=== PATIENT | female | born 1995 | race American Indian/Alaskan Native ===

== ENCOUNTER 2019-07-31 20:20 | Observation (INO) | payer OTHER ==
--- NOTE | 2019-07-31 20:30 | Event Note ---
ED Screening Note Date of service: 07/31/19 Time: 20:29 ED Screening Note: 24y o f presents with upper abd pain This initial assessment/diagnostic orders/clinical plan/treatment(s) is/are subject to change based on patients health status, clinical progression and re- assessment by fellow clinical providers in the ED. Further treatment and workup at subsequent clinical providers discretion. Patient/guardian urged not to elope from the ED as their condition may be serious if not clinically assessed and managed. Initial orders include: labs,ua, upt
[2019-07-31 21:18] LABS: Basophils % (Auto) 0.7 % (0.0-1.8); Eosinophils % (Auto) 0.4 % (0.0-4.3); Hematocrit 39.1 % (30.3-42.9); Hemoglobin 12.6 gm/dl (10.1-14.3); Lymphocytes # (Auto) 1.2 K/mm3 (1.2-5.4); Lymphocytes % (Auto) 27.7 % (13.4-35.0); Mean Corpuscular HGB Conc 32 % (30-34); Mean Corpuscular Volume 88 fl (79-97); Monocytes # (Auto) 0.3 K/mm3 (0.0-0.8); Monocytes % (Auto) 6.9 % (0.0-7.3); Platelet Count 274 K/mm3 (140-440); Red Blood Count 4.46 M/mm3 (3.65-5.03); Red Cell Distribution Width 14.3 % (13.2-15.2)
[2019-07-31 21:38] LABS: BUN/Creatinine Ratio 13; Blood Urea Nitrogen 9 mg/dL (7-17); Calcium 9.2 mg/dL (8.4-10.2); Hemolysis Index 5
--- NOTE | 2019-07-31 21:51 | Emergency Department Report ---
ED Abdominal Pain HPI - General Chief Complaint: Abdominal Pain Stated Complaint: ABD PAIN/NAUSEA/EMESIS/DIZZY Time Seen by Provider: 07/31/19 20:29 Source: patient Mode of arrival: Ambulatory Limitations: No Limitations - History of Present Illness Initial Comments: 24-year-old -[place]ron[place] female presents to the emergency room for upper abdominal pain that radiates to her back. Patient was seen 2 days ago and was diagnosed with abdominal pain CT showed that she had gallbladder thickening with no gallbladder stones or obstruction. Patient was referred to GI and primary care but has not followed up. Patient states that her pain is worse and is not able to wait that long to be seen. Patient reports she has an appointment with the GI specialist tomorrow. MD Complaint: abdominal pain Onset/Timin -: week(s) Location: RUQ Radiation: none Severity: severe Severity scale (0 -10): 8 Quality: sharp Consistency: constant, colicky Improves With: nothing Worsens With: eating, vomiting, movement Associated Symptoms: nausea, vomiting - Related Data LMP Date: 07/27/19 Previous Rx's Medication Instructions Recorded Last Taken Type Acetaminophen/Codeine [Tylenol 1 tab PO Q6H PRN #12 tab 07/29/19 Unknown Rx /Codeine # 3 tab] Ondansetron [Zofran Odt] 4 mg PO Q8HR PRN #20 tab.rapdis 07/29/19 Unknown Rx Allergies Allergy/AdvReac Type Severity Reaction Status Date / Time No Known Allergies Allergy Verified 07/31/19 20:25 ED Review of Systems ROS: Stated complaint: ABD PAIN/NAUSEA/EMESIS/DIZZY Other details as noted in HPI Comment: All other systems reviewed and negative Constitutional: denies: chills, fever Eyes: denies: eye pain, eye discharge, vision change ENT: denies: ear pain, throat pain Respiratory: denies: cough, shortness of breath, wheezing Cardiovascular: denies: chest pain, palpitations Endocrine: no symptoms reported Gastrointestinal: abdominal pain, nausea, vomiting Genitourinary: denies: urgency, dysuria, hematuria, discharge Musculoskeletal: denies: back pain, joint swelling, arthralgia Skin: denies: rash, lesions Neurological: denies: headache, weakness, paresthesias Psychiatric: denies: anxiety, depression Hematological/Lymphatic: denies: easy bleeding, easy bruising ED Past Medical Hx - Past Medical History Previous Medical History?: No - Surgical History Additional Surgical History: C section - Social History Smoking Status: Never Smoker - Medications Home Medications: Home Medications Medication Instructions Recorded Confirmed Last Taken Type Acetaminophen/Codeine [Tylenol 1 tab PO Q6H PRN #12 tab 07/29/19 Unknown Rx /Codeine # 3 tab] Ondansetron [Zofran Odt] 4 mg PO Q8HR PRN #20 tab.rapdis 07/29/19 Unknown Rx ED Physical Exam - General Limitations: No Limitations General appearance: alert, in no apparent distress - Head Head exam: Present: atraumatic, normocephalic - Eye Eye exam: Present: normal appearance - ENT ENT exam: Present: mucous membranes moist - Neck Neck exam: Present: normal inspection, full ROM - Respiratory Respiratory exam: Present: normal lung sounds bilaterally. Absent: respiratory distress - Cardiovascular Cardiovascular Exam: Present: tachycardia - GI/Abdominal GI/Abdominal exam: Present: soft, tenderness, guarding, normal bowel sounds. Absent: distended - Extremities Exam Extremities exam: Present: normal inspection, full ROM - Back Exam Back exam: Present: normal inspection - Neurological Exam Neurological exam: Present: alert, oriented X3 - Psychiatric Psychiatric exam: Present: normal affect, normal mood - Skin Skin exam: Present: warm, dry, intact, normal color. Absent: rash ED Course Vital Signs 07/31/19 07/31/19 07/31/19 20:30 23:10 23:40 Temperature 97.6 F Pulse Rate 97 H Respiratory 24 18 18 Rate Blood Pressure 112/90 O2 Sat by Pulse 97 Oximetry ED Medical Decision Making - Lab Data Result diagrams: 07/31/19 20:42 07/31/19 20:42 - Radiology Data Radiology results: report reviewed Patient: VINCENT MCCARTHY MR#: [id number] : 1995 Acct:[id number] Age/Sex: 24 / F ADM Date: 07/31/19 Loc: ED Attending Dr: Ordering Physician: DENISE CASTILLO Date of Service: 07/31/19 Procedure(s): US abdomen limited Accession Number(s): [id number] cc: DENISE CASTILLO ULTRASOUND ABDOMEN, LIMITED (RIGHT UPPER QUADRANT) INDICATION / CLINICAL INFORMATION: right upper quadrant pain that radiates to the back. COMPARISON: 07/29/2019 CT scan FINDINGS: Patient body habitus limits visualization of the abdominal viscera. PANCREAS: Poorly visualized due to inadequate acoustic windows. LIVER: Limited visualization of the liver parenchyma due to shadowing from o verlying ribs and bowel gas. GALLBLADDER: Gallbladder wall thickness is at the upper limit of normal range, 3 mm. The gallbladder is distended with length approximately 10 cm. Sonographic Calvin sign is reportedly positive. Small echogenic foci in the gallbladder fundus may represent stones or echogenic sludge. BILE DUCTS: No significant abnormality. Common bile duct measures 4 mm. FREE FLUID: None. ADDITIONAL FINDINGS: None. IMPRESSION: 1. Possible small gallstones or echogenic biliary sludge are seen in the gallbladder fundus. There are equivocal signs of acute cholecystitis sonographically. If the diagnosis is in doubt, a confirmatory HIDA scan may be obtained. Signer Name: Altaf Arteaga MD Signed: 07/31/2019 11:14 PM Workstation Name: [id number] Transcribed By: CALE Dictated By: Altaf Arteaga MD Electronically Authenticated By: Altaf Arteaga MD Signed Date/Time: 07/31/192313 DD/ 08 TD/TT: - Medical Decision Making 24-year-old -Micronesian female presents to the emergency room for upper abdominal pain that radiates to her back. Patient was seen 2 days ago and was diagnosed with abdominal pain CT showed that she had gallbladder thickening with no gallbladder stones or obstruction. Patient was referred to GI and primary care but has not followed up. Patient states that her pain is worse and is not able to wait that long to be seen. Patient reports she has an appointment with the GI specialist tomorrow. Ultrasound shows patient has cholecystitis with biliary sludge. Spoke to Dr. Stone. Order LFTs and lipase Labs are stable. Spoke to Dr. Edouard on surgery she requests patient to be admitted to obs ervation unit is started Zosyn 4.5 mg I will also place patient back on normal saline as well as nothing by mouth. Spoke to the patient regarding her admission. Critical care attestation.: If time is entered above; I have spent that time in minutes in the direct care of this critically ill patient, excluding procedure time. ED Disposition Clinical Impression: Cholecystitis, acute Disposition: DC-09 OP ADMIT IP TO THIS HOSP Is pt being admited?: Yes Does the pt Need Aspirin: No Condition: Stable Instructions: Abdominal Pain (ED) Referrals: PRIMARY CARE, [Primary Care Provider] - 3-5 Days
[2019-07-31 22:20] LABS: HCG Qualitative,Urine Negative (Negative)
[2019-07-31 22:23] LABS: Bilirubin,Urine NEG (Negative); Blood,Urine LG (Negative); Color,Urine Yellow (Yellow); Mucus,Urine FEW /HPF; Protein,Urine <15 mg/dL mg/dL (Negative); Urobilinogen,Urine < 2.0 mg/dL (<2.0)
[2019-07-31] MEDS ORDERED: SODIUM CHLORIDE 0.9% 1000 ML 1,000 ML IV ONE (23:01)
[2019-07-31] MEDS ORDERED: MORPHINE 4 MG/1 ML INJ IM ONE (23:01)
[2019-07-31] MEDS ORDERED: METOCLOPRAMIDE 10 MG/2 ML INJ IV ONE (23:01)
[2019-07-31] MEDS ORDERED: MORPHINE 4 MG/1 ML INJ IV ONE (23:05)
--- NOTE | 2019-07-31 23:19 | Ultrasound Report ---
ULTRASOUND ABDOMEN, LIMITED (RIGHT UPPER QUADRANT) INDICATION / CLINICAL INFORMATION: right upper quadrant pain that radiates to the back. COMPARISON: 07/29/2019 CT scan FINDINGS: Patient body habitus limits visualization of the abdominal viscera. PANCREAS: Poorly visualized due to inadequate acoustic windows. LIVER: Limited visualization of the liver parenchyma due to shadowing from overlying ribs and bowel g as. GALLBLADDER: Gallbladder wall thickness is at the upper limit of normal range, 3 mm. The gallbladder is distended with length approximately 10 cm. Sonographic Calvin sign is reportedly positive. Small e chogenic foci in the gallbladder fundus may represent stones or echogenic sludge. BILE DUCTS: No significant abnormality. Common bile duct measures 4 mm. FREE FLUID: None. ADDITIONAL FINDINGS: None. IMPRESSION: 1. Possible small gallstones or echogenic biliary sludge are seen in the gallbladder fundus. There ar e equivocal signs of acute cholecystitis sonographically. If the diagnosis is in doubt, a confirmator y HIDA scan may be obtained. Signer Name: Altaf Arteaga MD Signed: 07/31/2019 11:14 PM Workstation Name: [id number]
[2019-08-01 01:28] LABS: Alanine Aminotransferase 62 units/L (7-56); Albumin 4.4 g/dL (3.9-5)
[2019-08-01 01:39] LABS: Bilirubin,Direct < 0.2 mg/dL (0-0.2)
[2019-08-01] MEDS ORDERED: PIPERACIL/TAZOBACTA 4.5/NS 100 4.5 GM/100 ML VIAL IV ONE (01:59)
[2019-08-01] MEDS ORDERED: SODIUM CHLORIDE 0.9% 1000 ML 1,000 ML IV ONE (02:00)
[2019-08-01] MEDS ORDERED: MORPHINE 4 MG/1 ML INJ IV PRN (02:30)
[2019-08-01] MEDS ORDERED: ACETAMINOPHEN 325 MG TAB PO PRN (02:30)
--- NOTE | 2019-08-01 02:39 | History and Physical Report ---
History of Present Illness Chief complaint: Right upper quadrant pain History of present illness: 24-year-old woman who presents to the hospital right upper quadrant pain x3 days. He has been associated with nausea. Pain was as bad as 9 out of 10, currently 3 out of 10 as she has received pain meds. It is worse after eating. She states that gallstones run in her family. She has had similar episodes in the past but they resolved, but she seems to be getting them more frequently. She states that the first episode occurred after she had a baby by Past medical history; gallstones Surgical history; Social history denies tobacco alcohol or illicit drug abuse Family history; gallstones Medications and Allergies Allergies Allergy/AdvReac Type Severity Reaction Status Date / Time No Known Allergies Allergy Verified 07/31/19 20:25 Home Medications Medication Instructions Recorded Confirmed Last Taken Type oxyCODONE /ACETAMINOPHEN [Percocet 1 tab PO Q4H PRN #20 tablet 08/02/19 Unknown Rx 5/325 mg] Active Meds: Active Medications Acetaminophen (Tylenol) 650 mg PO Q4H PRN PRN Reason: Pain MILD(1-3)/Fever >100.5/CAMACHO Hydromorphone HCl (Dilaudid) 0.5 mg IV Q3H PRN PRN Reason: Pain , Severe (7-10) Sodium Chloride (Nacl 0.9% 1000 Ml) 1,000 mls @ 999 mls/hr IV BOLUS ONE Stop: 08/01/19 03:00 Last Admin: 08/01/19 02:10 Dose: 999 mls/hr Documented by: Sodium Chloride (Nacl 0.9% 1000 Ml) 1,000 mls @ 125 mls/hr IV DIRECT ERIC Morphine Sulfate (Morphine) 4 mg IV Q4H PRN PRN Reason: Pain , Severe (7-10) Ondansetron HCl (Zofran) 4 mg IV Q4H PRN PRN Reason: Nausea And Vomiting Sodium Chloride (Sodium Chloride Flush Syringe 10 Ml) 10 ml IV BID ERIC Sodium Chloride (Sodium Chloride Flush Syringe 10 Ml) 10 ml IV PRN PRN PRN Reason: LINE FLUSH Review of Systems All systems: negative Constitutional: anorexia, no weight loss Ears, nose, mouth and throat: no ear pain Breasts: no mass Cardiovascular: no chest pain Respiratory: no cough Gastrointestinal: abdominal pain, nausea Genitourinary Female: no dyspareunia Menstruation: no currently menstrual Rectal: no pain Musculoskeletal: no neck stiffness Integumentary: no rash Neurological: no head injury Psychiatric: no anxiety Endocrine: no cold intolerance Hematologic/Lymphatic: no easy bruising Allergic/Immunologic: no urticaria Exam - Constitutional Vitals: Temp Pulse Resp BP Pulse Ox 98.4 F 88 18 107/70 98 08/01/19 02:12 08/01/19 02:12 08/01/19 02:12 08/01/19 02:12 08/01/19 02:12 General appearance: Present: no acute distress, well-nourished - EENT Eyes: Present: PERRL ENT: hearing intact, clear oral mucosa - Neck Neck: Present: supple, normal ROM - Respiratory Respiratory effort: normal Respiratory: bilateral: CTA - Cardiovascular Heart Sounds: Present: S1 & S2. Absent: rub, click - Extremities Extremities: pulses symmetrical, No edema Peripheral Pulses: within normal limits - Abdominal General gastrointestinal: Present: soft, tender (right upper quadrant), non- distended, normal bowel sounds Female genitourinary: Present: normal - Integumentary Integumentary: Present: clear, warm, dry - Musculoskeletal Musculoskeletal: gait normal, strength equal bilaterally - Psychiatric Psychiatric: appropriate mood/affect, intact judgment & insight - Neurologic Neurologic: CNII-XII intact, moves all extremities Results - Labs CBC & Chem 7: 08/02/19 05:25 08/02/19 05:25 Labs: Laboratory Last Values WBC 4.2 K/mm3 (4.5-11.0) L 07/31/19 20:42 RBC 4.46 M/mm3 (3.65-5.03) 07/31/19 20:42 Hgb 12.6 gm/dl (10.1-14.3) 07/31/19 20:42 Hct 39.1 % (30.3-42.9) 07/31/19 20:42 MCV 88 fl (79-97) 07/31/19 20:42 MCH 28 pg (28-32) 07/31/19 20:42 MCHC 32 % (30-34) 07/31/19 20:42 RDW 14.3 % (13.2-15.2) 07/31/19 20:42 Plt Count 274 K/mm3 (140-440) 07/31/19 20:42 Lymph % (Auto) 27.7 % (13.4-35.0) 07/31/19 20:42 [place] % (Auto) 6.9 % (0.0-7.3) 07/31/19 20:42 Eos % (Auto) 0.4 % (0.0-4.3) 07/31/19 20:42 Baso % (Auto) 0.7 % (0.0-1.8) 07/31/19 20:42 Lymph # 1.2 K/mm3 (1.2-5.4) 07/31/19 20:42 [place] # 0.3 K/mm3 (0.0-0.8) 07/31/19 20:42 Eos # 0.0 K/mm3 (0.0-0.4) 07/31/19 20:42 Baso # 0.0 K/mm3 (0.0-0.1) 07/31/19 20:42 Seg Neutrophils % 64.3 % (40.0-70.0) 07/31/19 20:42 Seg Neutrophils # 2.7 K/mm3 (1.8-7.7) 07/31/19 20:42 Sodium 142 mmol/L (137-145) 07/31/19 20:42 Potassium 3.7 mmol/L (3.6-5.0) 07/31/19 20:42 Chloride 105.5 mmol/L (98-107) 07/31/19 20:42 Carbon Dioxide 23 mmol/L (22-30) 07/31/19 20:42 17 mmol/L 07/31/19 20:42 BUN 9 mg/dL (7-17) 07/31/19 20:42 0.7 mg/dL (0.7-1.2) 07/31/19 20:42 Estimated GFR > 60 ml/min 07/31/19 20:42 13 % 07/31/19 20:42 Glucose 96 mg/dL (65-100) 07/31/19 20:42 Calcium 9.2 mg/dL (8.4-10.2) 07/31/19 20:42 0.70 mg/dL (0.1-1.2) 08/01/19 00:34 < 0.2 mg/dL (0-0.2) 08/01/19 00:34 0.5 mg/dL 08/01/19 00:34 AST 30 units/L (5-40) 08/01/19 00:34 ALT 62 units/L (7-56) H 08/01/19 00:34 67 units/L (35-129) 08/01/19 00:34 8.0 g/dL (6.3-8.2) 08/01/19 00:34 4.4 g/dL (3.9-5) 08/01/19 00:34 1.2 % 08/01/19 00:34 23 units/L (13-60) 08/01/19 00:34 Yellow (Yellow) 07/31/19 21:46 Slightly-cloudy (Clear) 07/31/19 21:46 5.0 (5.0-7.0) 07/31/19 21:46 Ur Specific [place] 1.020 (1.003-1.030) 07/31/19 21:46 <15 mg/dl mg/dL (Negative) 07/31/19 21:46 Neg mg/dL (Negative) 07/31/19 21:46 Neg mg/dL (Negative) 07/31/19 21:46 Lg (Negative) 07/31/19 21:46 Neg (Negative) 07/31/19 21:46 Ur Reducing Substances Not Reportable 07/31/19 21:46 Neg (Negative) 07/31/19 21:46 Not Reportable 07/31/19 21:46 < 2.0 mg/dL (<2.0) 07/31/19 21:46 Ur Leukocyte Esterase Neg (Negative) 07/31/19 21:46 4.0 /HPF (0.0-6.0) 07/31/19 21:46 3.0 /HPF (0.0-6.0) 07/31/19 21:46 U Epithel Cells (Auto) 5.0 /HPF (0-13.0) 07/31/19 21:46 Few /HPF 07/31/19 21:46 Urine HCG, Qual Negative (Negative) 07/31/19 21:46 Assessment and Plan Assessment and plan: 24-year-old woman who presents to the hospital with right upper quadrant pain consistent with acute cholecystitis Labs reviewed show white count of 4.2, ALT of 62, UA negative abdominal ultrasound; possible small gallstones or echogenic biliary sludge is seen in the gallbladder fundus. There are equivocal signs of acute cholecys titis sonographically. Acute cholecystitis Surgery was consulted by the ER, plan for possible lap joleen. Keep n.p.o., IV fluids pain meds, IV antibiotics, antiemetics as needed. DVT prophylaxis Early ambulation
[2019-08-01] MEDS ORDERED: HYDROmorphone 1 MG/1 ML INJ ONE (04:05)
[2019-08-01] MEDS: HYDROmorphone 1 MG/1 ML INJ IV PRN ×5 (04:05→19:54)
[2019-08-01] MEDS: SODIUM CHLORIDE 0.9% 1000 ML 1,000 ML IV SCH ×3 (05:11→19:55)
[2019-08-01] MEDS: PIPERACIL/TAZOBACTA 4.5/NS 100 4.5 GM/100 ML VIAL IV SCH ×3 (07:01→21:00)
[2019-08-01] MEDS: ONDANSETRON 4 MG/2 ML INJ IV PRN ×3 (09:10→19:53)
--- NOTE | 2019-08-01 14:23 | Consultation ---
History of Present Illness Consult date: 08/01/19 Reason for consult: abdominal pain Chief complaint: Abdominal pain - History of present illness History of present illness: 24-year-old female with no past medical history presents to the emergency room w ith 3 days of abdominal pain, nausea, vomiting. She states abdominal pain as sharp and localized to the right upper quadrant and often radiates to her back and across to the other side of her abdomen. She states that she had similar but less severe episodes during her last and since she is given to her son. However, this episode has been the most severe. The pain is exacerbated by fatty foods. There are no alleviating factors except for IV pain medication. She has had several episodes of nausea and emesis. Per nursing the patient was eating noodles this morning at 3 AM however vomited shortly thereafter. No fevers, chills, chest pain, shortness of breath. The patient had presented to the emergency room on 07/29 with similar symptoms and was discharged home after symptom relief. Past History Past Medical History: No medical history Past Surgical History: Social history: no significant social history Family history: other (gallbladder - aunt, grandfather) Medications and Allergies Allergies Allergy/AdvReac Type Severity Reaction Status Date / Time No Known Allergies Allergy Verified 07/31/19 20:25 Active Meds: Active Medications Acetaminophen (Tylenol) 650 mg PO Q4H PRN PRN Reason: Pain MILD(1-3)/Fever >100.5/CAMACHO Hydromorphone HCl (Dilaudid) 0.5 mg IV Q3H PRN PRN Reason: Pain , Severe (7-10) Last Admin: 08/01/19 12:41 Dose: 0.5 mg Documented by: Sodium Chloride (Nacl 0.9% 1000 Ml) 1,000 mls @ 125 mls/hr IV DIRECT ERIC Last Admin: 08/01/19 12:41 Dose: 125 mls/hr Documented by: Piperacillin Sod/Tazobactam Sod (Zosyn/Ns 4.5gm/100ml) 4.5 gm in 100 mls @ 200 mls/hr IV Q8HR ERIC; Protocol Last Admin: 08/01/19 13:19 Dose: 200 mls/hr Documented by: Morphine Sulfate (Morphine) 4 mg IV Q4H PRN PRN Reason: Pain , Severe (7-10) Ondansetron HCl (Zofran) 4 mg IV Q4H PRN PRN Reason: Nausea And Vomiting Last Admin: 08/01/19 09:10 Dose: 4 mg Documented by: Sodium Chloride (Sodium Chloride Flush Syringe 10 Ml) 10 ml IV BID ERIC Last Admin: 08/01/19 12:49 Dose: Not Given Documented by: Sodium Chloride (Sodium Chloride Flush Syringe 10 Ml) 10 ml IV PRN PRN PRN Reason: LINE FLUSH Review of Systems All systems: negative (10 point review systems was performed and negative except for that listed in HPI) Exam Vital Signs Temp Pulse Resp BP Pulse Ox 97.6 F 97 H 24 112/90 97 07/31/19 20:30 07/31/19 20:30 07/31/19 20:30 07/31/19 20:30 07/31/19 20:30 Narrative exam: Gen.: Awake, alert, oriented 3. No apparent distress ENT: No scleral icterus or conjunctival pallor CV: S1, S2 present Respiratory: No audible wheezes Abdomen: Soft, nondistended, positive tenderness to palpation in the epigastrium and right upper quadrant. No rebound, rigidity, guarding Extremities: No clubbing, cyanosis, edema Results - Labs 07/31/19 20:42 07/31/19 20:42 Abnormal lab results 07/31/19 08/01/19 Range/Units 20:42 00:34 WBC 4.2 L (4.5-11.0) K/mm3 ALT 62 H (7-56) units/L Diabetes panel 07/31/19 08/01/19 Range/Units 20:42 00:34 Sodium 142 (137-145) mmol/L Potassium 3.7 (3.6-5.0) mmol/L Chloride 105.5 (98-107) mmol/L Carbon Dioxide 23 (22-30) mmol/L BUN 9 (7-17) mg/dL Creatinine 0.7 (0.7-1.2) mg/dL Glucose 96 (65-100) mg/dL Calcium 9.2 (8.4-10.2) mg/dL AST 30 (5-40) units/L ALT 62 H (7-56) units/L Alkaline Phosphatase 67 (35-129) units/L Total Protein 8.0 (6.3-8.2) g/dL Albumin 4.4 (3.9-5) g/dL Calcium panel 07/31/19 08/01/19 Range/Units 20:42 00:34 Calcium 9.2 (8.4-10.2) mg/dL Albumin 4.4 (3.9-5) g/dL Pituitary panel 07/31/19 Range/Units 20:42 Sodium 142 (137-145) mmol/L Potassium 3.7 (3.6-5.0) mmol/L Chloride 105.5 (98-107) mmol/L Carbon Dioxide 23 (22-30) mmol/L BUN 9 (7-17) mg/dL Creatinine 0.7 (0.7-1.2) mg/dL Glucose 96 (65-100) mg/dL Calcium 9.2 (8.4-10.2) mg/dL Adrenal panel 07/31/19 08/01/19 Range/Units 20:42 00:34 Sodium 142 (137-145) mmol/L Potassium 3.7 (3.6-5.0) mmol/L Chloride 105.5 (98-107) mmol/L Carbon Dioxide 23 (22-30) mmol/L BUN 9 (7-17) mg/dL Creatinine 0.7 (0.7-1.2) mg/dL Glucose 96 (65-100) mg/dL Calcium 9.2 (8.4-10.2) mg/dL Total Bilirubin 0.70 (0.1-1.2) mg/dL AST 30 (5-40) units/L ALT 62 H (7-56) units/L Alkaline Phosphatase 67 (35-129) units/L Total Protein 8.0 (6.3-8.2) g/dL Albumin 4.4 (3.9-5) g/dL - Imaging CT scan - abdomen: report reviewed, image reviewed CT scan - pelvis: report reviewed, image reviewed US - abdomen: report reviewed, image reviewed Assessment and Plan 24-year-old female with acute cholecystitis CT scan and abdominal ultrasound imaging personally reviewed. Plan: Patient stable. c/o abdominal pain and requiring IV pain medications. Had multiple episodes of nausea/vomiting which are relatively controlled with antiemetics. She is requiring IVF as she is dehydrated and unable to tolerate PO. Pt also on IV abx. 1. continue IVF 2. repeat labs in am 3. prn IV pain control 4. prn nausea control 5. trial of clear liquids, NPO p MN 6. DVT ppx 7. IV abx - on zosyn Recommend cholecystectomy. I discussed all risks, benefits, alternatives to surg valentin with patient and questions answered. Consent obtained for robotic -assisted cholecystectomy, possible open, possible cholangiogram. Discussed scheduling with OR - no time available until all elective cases are complete which will likely be late in the evening. In addition patient was not NPO p MN as she ate regular food on her own without our knowledge. Will schedule patient for 8 am tomorrow and likely dc home after surgery. Thank you, please call with questions
--- NOTE | 2019-08-01 15:04 | Event Note ---
Date: 08/01/19 She was admitted early this morning with right upper quadrant pain Workup consistent with acute cholecystitis Surgery evaluation the patient, scheduled for cholecystectomy tomorrow Continue Antibiotics and supportive care Plan of care is reviewed with the patient, family members at bedside and her nurse
[2019-08-01] MEDS ORDERED: ENOXAPARIN 40 MG/0.4 ML INJ SUB-Q SCH (22:00)
[2019-08-02] MEDS: HYDROmorphone 1 MG/1 ML INJ IV PRN (00:22)
[2019-08-02] MEDS: diphenhydrAMINE 50 MG/ML VIAL IV PRN ×2 (00:22→14:10)
[2019-08-02] MEDS: PIPERACIL/TAZOBACTA 4.5/NS 100 4.5 GM/100 ML VIAL IV SCH (05:32)
[2019-08-02] MEDS: SODIUM CHLORIDE 0.9% 1000 ML 1,000 ML IV SCH (05:34)
[2019-08-02 06:25] LABS: Basophils # (Auto) 0.1 K/mm3 (0.0-0.1); Basophils % (Auto) 1.3 % (0.0-1.8); Eosinophils # (Auto) 0.1 K/mm3 (0.0-0.4); Eosinophils % (Auto) 1.4 % (0.0-4.3); Lymphocytes # (Auto) 1.4 K/mm3 (1.2-5.4); Lymphocytes % (Auto) 36.5 % (13.4-35.0); Mean Corpuscular HGB Conc 33 % (30-34); Mean Corpuscular Volume 87 fl (79-97); Monocytes # (Auto) 0.3 K/mm3 (0.0-0.8); Monocytes % (Auto) 7.6 % (0.0-7.3); Platelet Count 263 K/mm3 (140-440); Red Blood Count 4.25 M/mm3 (3.65-5.03); Red Cell Distribution Width 14.6 % (13.2-15.2)
[2019-08-02 06:44] LABS: BUN/Creatinine Ratio 7; Blood Urea Nitrogen 5 mg/dL (7-17); Calcium 8.7 mg/dL (8.4-10.2); Hemolysis Index 39
[2019-08-02] MEDS ORDERED: BACTERIOSTATIC SODIUM CHLORIDE 0.9% 30 ML VIAL INFILTRATI ONE (06:52)
--- NOTE | 2019-08-02 07:24 | Anesthesia Consultation ---
Anesthesia Consult and Med Hx Date of service: 08/02/19 - Airway Anesthetic Teeth Evaluation: Good ROM Head & Neck: Adequate Mental/Hyoid Distance: Adequate Mallampati Class: Class II Intubation Access Assessment: Good - Pulmonary Exam CTA: Yes - Cardiac Exam Cardiac Exam: RRR - Pre-Operative Health Status ASA Pre-Surgery Classification: ASA1 Proposed Anesthetic Plan: General - Pulmonary Hx Asthma: No COPD: No Hx Pneumonia: No - Central Nervous System Hx Psychiatric Problems: No - Endocrine Hx End Stage Renal Disease: No
[2019-08-02] MEDS ORDERED: fentaNYL 100 MCG/2 ML INJ IV NR (07:25)
--- NOTE | 2019-08-02 07:25 | Anesthesia Day of Surgery ---
Anesthesia Day of Surgery - Day of Surgery Patient Examined: Yes Patient H&P Reviewed: Yes Patient is NPO: Yes
--- NOTE | 2019-08-02 07:30 | Anesthesia Day of Surgery ---
Anesthesia Day of Surgery - Day of Surgery Patient Examined: Yes Patient H&P Reviewed: Yes Patient is NPO: Yes
[2019-08-02] MEDS ORDERED: LIDOCAINE (1%) 10 MG/1 ML VIAL 20 ML MDV ONE (07:31)
[2019-08-02] MEDS ORDERED: BUPIVACAINE/PF (0.5%) 5 MG/1 ML 30 ML VIAL INFILTRATI ONE ×2 (07:31→08:39)
[2019-08-02] MEDS ORDERED: PROPOFOL 200 MG/20 ML VIAL IV ONE (07:35)
[2019-08-02] MEDS ORDERED: GLYCOPYRROLATE 0.4 MG/2 ML INJ ONE (07:36)
[2019-08-02] MEDS ORDERED: NEOSTIGMINE 10MG/10 ML INJ MDV ONE (07:36)
[2019-08-02] MEDS ORDERED: PHENYLEPHRINE/NS 1,000 MCG/10 ML SYRINGE (OR USE) IV ONE (07:36)
[2019-08-02] MEDS ORDERED: ONDANSETRON 4 MG/2 ML INJ ONE (07:36)
[2019-08-02] MEDS ORDERED: ROCURONIUM 50 MG/5 ML INJ IV ONE (07:36)
[2019-08-02] MEDS ORDERED: LIDOCAINE MPF (2%) 20 MG/1 ML VIAL 5 ML ONE (07:36)
[2019-08-02] MEDS ORDERED: SUCCINYLCHOLINE CHLORIDE 200 MG/10 ML INJ MDV ONE (07:36)
[2019-08-02] MEDS ORDERED: fentaNYL 250 MCG/5 ML INJ ONE (07:36)
[2019-08-02] MEDS ORDERED: dexAMETHasone 20 MG/5 ML VIAL ONE (07:36)
[2019-08-02] MEDS ORDERED: MIDAZOLAM 2 MG/2 ML INJ IV NR (08:00)
[2019-08-02] MEDS ORDERED: LIDOCAINE (1%) 10 MG/1 ML VIAL 20 ML MDV INFILTRATI ONE (08:39)
[2019-08-02] MEDS ORDERED: fentaNYL 100 MCG/2 ML INJ ONE ×2 (08:40)
[2019-08-02] MEDS ORDERED: WATER FOR IRRIG STERILE 1,500 ML BOTTLE IR ONE (08:40)
[2019-08-02] MEDS ORDERED: ESMOLOL 100 MG/10 ML INJ IV ONE (08:52)
[2019-08-02] MEDS ORDERED: oxyCODONE /ACETAMINOPHEN 5-325MG TAB PO PRN (09:24)
--- NOTE | 2019-08-02 09:37 | Post Operative Note ---
Date of procedure: 08/02/19 Pre-op diagnosis: acute cholecystitis Post-op diagnosis: same Findings: distended gallbladder Procedure: robotic assisted cholecystectomy Anesthesia: ESTIVEN, local Surgeon: MALISSA HAIRSTON Online Marketing Specialist: MARIO ALBERTO LIPSCOMB Estimated blood loss: minimal Pathology: list (gallbladder) Specimen disposition: to lab Condition: stable Disposition: PACU
[2019-08-02] MEDS ORDERED: SODIUM CHLORIDE 0.9% 1000 ML 1,000 ML IV SCH (10:00)
[2019-08-02] MEDS ORDERED: KETOROLAC 30 MG/1 ML INJ IV SCH (10:00)
[2019-08-02] MEDS ORDERED: HYDROmorphone 1 MG/1 ML INJ IV PRN (10:15)
--- NOTE | 2019-08-02 10:17 | Operative Report ---
PREOPERATIVE DIAGNOSIS: Acute cholecystitis. POSTOPERATIVE DIAGNOSIS: Acute cholecystitis. FINDINGS: Distended gallbladder. PROCEDURE: Robotic-assisted cholecystectomy. ANESTHESIA: General endotracheal anesthesia, local. SURGEON: Cinda Edouard D.O. CIRCUIT RIDER: Mitali Sherman M.D. ESTIMATED BLOOD LOSS: Minimal. PATHOLOGY: Gallbladder. SPECIMEN DISPOSITION: To lab. CONDITION ON DISCHARGE: The patient is stable to PACU. HISTORY OF PRESENT ILLNESS AND INDICATION: The patient is a 24-year-old female who presented to the Emergency Room with several days of right upper quadrant pain, nausea and vomiting. This was her second visit to the Emergency Room and an ultrasound was performed. Ultrasound showed a distended gallbladder with equivocal signs for acute cholecystitis. The patient was admitted due to her symptoms. The patient was started on IV fluids and IV antibiotics as well as pain and nausea control. The patient was seen for the cholecystitis and a cholecystectomy was recommended. I discussed all risks, benefits and alternatives to surgery with the patient and questions answered. Consent obtained for robotic-assisted cholecystectomy, possible open, possible cholangiogram. PROCEDURE IN DETAIL: The patient was identified in the preoperative area and taken back to the operating room and placed on the operating table in supine position. After anesthesia was induced, the right arm was tucked and all bony prominences padded appropriately. The abdomen was then prepped and draped in the usual sterile fashion. Timeout was performed. Local anesthetic was infiltrated into all skin incision sites prior to incision. A 12 mm incision was made above the umbilicus through which a Veress needle was inserted. The Veress needle position was confirmed using the saline drop test. However, when attempting to insufflate the abdomen, the pressures were very high. Therefore, the Veress needle was passed through the umbilicus and the position confirmed using the saline drop test, but upon insufflation, the pressures were high. A bisi incision was made in the left upper quadrant at Muller's point and the Veress needle was placed through here. The Veress needle position was confirmed using saline drop test. However, upon insufflation, the insufflation pressures were high. Veress needle was removed and it was decided to perform a cutdown. At the umbilicus, a serial cutdown was performed through the subcutaneous tissue and then the anterior fascia and posterior fascia with great care. Once the peritoneum was identified, the Veress needle was placed through the peritoneum and the saline drop test confirmed positioning. The abdomen was then insufflated and the pressures were satisfactory. The abdomen slowly insufflated to 15 mmHg and the Veress needle removed. A 12 mm balloon Optiview trocar was placed through this incision and the abdomen inspected. There was no evidence that the Veress needle had entered through the peritoneum upon inspection of the abdomen. High pressures were likely due to the Veress needle positioning in the preperitoneal space. The remainder of the abdomen was inspected. There was no underlying injury to any of the abdominal structures. There was some physiologic fluid in bilateral adnexal areas. The gallbladder was visualized and the patient was placed in reverse Trendelenburg and tilted to the left. An additional 8 mm robotic trocar was placed in the left upper quadrant and two robotic trocars in the right mid and lateral abdomen. A Ray-Rebeca was placed into the abdomen and the robot docked. A monopolar hook was placed in arm #1 and a Cadiere grasper in arm #2 and ProGrasp in arm #3. The surgeon was transferred to the console. Gallbladder fundus was grasped and retracted cephalad and above the liver. The gallbladder was distended and elongated. The gallbladder infundibulum was retracted laterally and the cystic duct and artery were carefully skeletonized. Once this was done, the lateral and medial peritoneal reflections of the gallbladder were carefully dissected using the hook until the critical view was obtained. The cystic duct and artery were seen as only two structures entering the gallbladder. Two clips were placed on the proximal aspect of the cystic duct and cystic artery respectively and 1 distally on the cystic artery and duct respectively. The structures were cut in between the clips by the child care assistant surgeon using EndoShears. The gallbladder was then dissected off the liver bed using hook electrocautery and placed in the right upper quadrant. The gallbladder fossa and liver bed were inspected for hemostasis, which was carefully ensured. The clips were visualized and intact. There was no bleeding or bile leakage seen. The robot was then undocked and the surgeon scrubbed back in. The remainder of the case was performed laparoscopically. The gallbladder was placed into an EndoCatch bag and removed via the 12 mm port. The 12 mm port fascia was then closed with interrupted 0 Vicryl sutures with the Patrice-Sandoval device. The liver bed and gallbladder fossa were once again inspected and Morison's pouch was irrigated once the patient was placed in neutral position. The abdomen was once again inspected. There was no injury seen. The ports were then removed under direct visualization, the abdomen desufflated. Please note that the Ray-Rebeca was removed from the abdomen prior to this. The skin incision once again infiltrated with local anesthetic and the skin closed with 4-0 Monocryl subcuticular stitches and skin glue. At the end of the case, all sponge, instrument, sharp counts were correct x 2. The gallbladder was inspected on the back table and there was no other tubular structure entering the gallbladder other than the cystic duct. The patient was awoken from anesthesia, extubated, and taken to PACU in stable condition. JOB# [id number] ROSA ELENA/SAMIRA REILLY
--- NOTE | 2019-08-02 10:50 | Post Anesthesia Evaluation ---
- Post Anesthesia Evaluation Patient Participated: Yes Airway Patent: Yes Stable Respiratory Function: Yes Nausea/Vomiting: No Temp > 96.8F: Yes Pain Manageable: Yes Adequeate Hydration: Yes Anesthesia Complications: No
[2019-08-02] MEDS: ONDANSETRON 4 MG/2 ML INJ IV PRN (11:52)
--- NOTE | 2019-08-02 15:38 | Discharge Summary ---
Providers - Providers Date of Admission: 08/01/19 02:05 Date of discharge: 08/02/19 Attending physician: SMOOTH CHANDRA 08/01/19 02:00 Consult to Physician [CONS] Urgent Comment: DENISE Chong spoke with Dr. Hairston @ [phone] Consulting Provider: MALISSA HAIRSTON Physician Instructions: Reason For Exam: cholecystitis Primary care physician: [employer] Hospitalization Reason for admission: RtUQ abd pain/acute cholecystits Condition: Stable Pertinent studies: Abdominal US Procedures: Robotic assisted cholecystectomy Hospital course: 24-year-old woman who presents to the hospital right upper quadrant pain x3 days. He has been associated with nausea. Pain was as bad as 9 out of 10, currently 3 out of 10 as she has received pain meds. It is worse after eating. She states that gallstones run in her family. She has had similar episodes in the past but they resolved, but she seems to be getting them more frequently. She states that the first episode occurred after she had a baby by . Initial workup is consistant with acute cholecystitis,evaluated by surgery and underwent robotic assisted cholecystectomy. Postop period was unremarkable. Today patient is comfortable,no new complaints,vital signs reviewed Stable at discharged Discharge Diagnosis: --Acute Cholecystitis: s/p Robotassisted cholecystectomy --Abdominal pain: Improved --Obesity: BMI 36.1: advised weight reduction Stable at discharge. Disposition: DC-01 TO HOME OR SELFCARE Time spent for discharge: 32 min Core Measure Documentation - Palliative Care Palliative Care/ Comfort Measures: Not Applicable - Core Measures Any of the following diagnoses?: none Exam - Constitutional Vitals: Temp Pulse Resp BP Pulse Ox 97.5 F L 82 16 110/43 96 08/02/19 11:00 08/02/19 11:00 08/02/19 11:00 08/02/19 11:00 08/02/19 11:00 General appearance: Present: no acute distress, well-nourished - EENT Eyes: Present: PERRL, EOM intact - Neck Neck: Present: supple, normal ROM - Respiratory Respiratory effort: normal Respiratory: bilateral: diminished, negative: rales, rhonchi, wheezing - Cardiovascular Rhythm: regular Heart Sounds: Present: S1 & S2 - Extremities Extremities: no ischemia, No edema - Abdominal General gastrointestinal: Present: soft, non-tender, non-distended, normal bowel sounds - Integumentary Integumentary: Present: clear, warm - Musculoskeletal Musculoskeletal: strength equal bilaterally - Psychiatric Psychiatric: appropriate mood/affect, cooperative - Neurologic Neurologic: CNII-XII intact, moves all extremities Plan Activity: advance as tolerated Diet: advance as tolerated Additional Instructions: If you have nausea and vomiting and abdominal pain,contact MD or go to ER Follow up with: MALISSA HAIRSTON DO [Staff Physician] - 14 Days PRIMARY CARE,MD [Primary Care Provider] - 3-5 Days Prescriptions: oxyCODONE /ACETAMINOPHEN [Percocet 5/325 mg] 1 tab PO Q4H PRN #20 tablet PRN Reason: Pain, Moderate (4-6)
[2019-08-02 16:24] VITALS: BP 120/69
== END 2019-08-02 16:40 | disposition home or self-care (01) ==
LOC: ED 20:20 → 3B-SURG 08-01 02:05
PROVIDERS: ADMIT Internal Medicine; ATTEND Internal Medicine
DX: K81.0 Acute cholecystitis (principal); Z79.899 Other long term (current) drug therapy
CPT/HCPCS: 36415; 47562; 76705; 80048; 80076; 81001; 81025; 83690; 85025; 88304; 96361; 96365; 96366; 96375; 96376; 99284; G0378; J0330; J1100; J1170; J1200; J1885; J2270; J2370; J2405; J2543; J2704; J2710; J2765; J3010; J7030; S2900